=== PATIENT | male | born 1960 | race Caucasian/White ===

== ENCOUNTER 2016-10-06 10:03 | Observation (INO) ==
[2016-10-06 10:42] LABS: Basophils # 0.1 K/mcL (0.0-0.2); Basophils % 0.6 %; Eosinophils # 0.3 K/mcL (0.0-0.6); Eosinophils % 3.4 %; Hemoglobin 15.8 g/dL (12.9-16.9); Immature Granulocytes % 0.9 % (0-4); Lymphocytes % 25.9 %; Mean Corpuscular HGB Conc 35.1 g/dL (31.6-35.5); Mean Corpuscular Volume 85.6 fL (83.0-100.0); Mean Platelet Volume 9.4 fL (9.4-12.4); Monocytes # 0.5 K/mcL (0.0-1.3); Monocytes % 5.7 %; Platelet Count 188 K/mcL (140-400); Red Blood Count 5.26 M/mcL (4.19-5.50); Red Cell Distribution Width 11.9 % (11.5-14.5); Segmented Neutrophils % 63.5 %
[2016-10-06 10:46] LABS: Prothrombin Time 10.5 Seconds (9.4-12.1)
[2016-10-06 10:49] LABS: Activated Partial Thrombo Time 27.4 Seconds (26.0-36.0)
[2016-10-06 10:56] LABS: BUN/Creatinine Ratio 19 (6-26); Blood Urea Nitrogen 22 mg/dL (8-26); Calcium 8.9 mg/dL (8.6-10.8); Carbon Dioxide 23 mEq/L (19-29); Chloride 103 mEq/L (98-109); Glucose 265 mg/dL (70-99); Osmolality,Calculated 295 (280-300); Potassium 3.9 mEq/L (3.5-4.5); Sodium 136 mEq/L (136-145); eGFR For African Americans > 60 (> 60); eGFR For Non-African Americans > 60 (> 60)
[2016-10-06] MEDS ORDERED: *HR* Metoprolol 5 MG/5 ML VIAL IVP ONE (11:07)
[2016-10-06] MEDS ORDERED: Aspirin 81 MG TAB.CHEW PO STA (11:07)
--- NOTE | 2016-10-06 11:08 | Emergency Department Note ---
Disposition Clinical Impression: Stable angina Disposition: Admitted As Inpatient Condition: Good Referrals: NO,PCP [Non-Partnered Physician] - Forms: ED Satisfaction Letter Chest Pain HPI - General Chief Complaint: ED Chest Pain Stated Complaint: chest pain Time Seen by Provider: 10/06/16 10:08 Source: patient Mode of arrival: private vehicle Limitations: no limitations Vital Signs Reviewed: Yes Nursing Notes Reviewed: Yes - History of Present Illness HPI Narrative: 56-year-old male history of poorly controlled diabetes and hypertension who presents to the ER with a chief complaint of chest pain. Patient reports that he has had chest pain on and off for the last month but over the last 1-2 weeks it has been more constant. He reports worsening of his chest pain with any type of activity. He states that he gets short of breath and has to go inside and laid down. Patient reports during the last week he has had intermittent spells where he will also break out into sweats for no reason. Patient reports that he had a stress test roughly 4 years ago which was okay. He states that he has been checking his blood pressure at home because it is been poorly regulated. Recently started Coreg around 2 weeks ago. His blood pressure has remained in the 150s over 100s at home. No history of MN, stents, DVT or PE. No other complaints. Pt complaint: chest pain Onset (ago): week(s) Duration: constant Onset: during exertion Pain Location: substernal Severity: moderate Severity scale (1-10): 6 Quality: heaviness Pain Radiation: neck Improves with: rest Worsens with: exertion Associated symptoms: Reports: diaphoresis. Denies: nausea, vomiting, dyspnea Treatments prior to arrival chest pain: none - Related Data Allergies Allergy/AdvReac Type Severity Reaction Status Date / Time No Known Allergies Allergy Verified 10/06/16 11:59 All systems ED: reviewed and negative except as stated. Constitutional: Denies: fever Cardiovascular: Reports: chest pain, dyspnea on exertion Respiratory: Reports: dyspnea. Denies: cough, wheezes Gastrointestinal: Denies: abdominal pain, nausea, vomiting Musculoskeletal: Reports: other (Left jaw pain) Chest Pain PMH - Past Medical History Medical history: Reports: diabetes, hypertension Psychiatric history: Reports: no psych history - Social History Smoking Status: Never smoker Alcohol use: Reports: none Drug use: Reports: none Physical Exam - General Limitations: no limitations General appearance: alert, in no apparent distress - Head Head exam: atraumatic, normocephalic, normal inspection - Eye Eye exam: Present: normal appearance, PERRL, EOMI - ENT ENT exam: normal exam, normal oropharynx, mucous membranes moist - Expanded ENT Exam External ear exam: Present: normal external inspection Mouth exam: Present: normal external inspection Teeth exam: Present: normal inspection Throat exam: Present: normal inspection - Neck Neck exam: Present: normal inspection, full ROM, trachea midline - Chest Chest inspection: Present: normal inspection, symmetric chest wall rise. Absent : tenderness - Respiratory Respiratory exam: Present: normal lung sounds bilaterally - Cardiovascular Cardiovascular exam: Present: regular rate, normal rhythm, normal heart sounds - Abdominal Exam Abdominal exam: Present: soft, Non-Tender. Absent: tenderness, distention, rigidity - Extremities Exam Extremities exam: Present: normal inspection, full ROM - Expanded Upper Extremity Exam Shoulder exam: Present: normal inspection, full ROM Arm exam: Present: normal inspection, full ROM Elbow exam: Present: normal inspection, full ROM Forearm/Wrist exam: Present: normal inspection, full ROM Hand exam: Present: normal inspection, full ROM - Expanded Lower Extremity Exam Hip/Pelvis exam: Present: normal inspection, full ROM Upper leg exam: Present: normal inspection, full ROM Knee exam: Present: normal inspection, full ROM Lower leg exam: Present: normal inspection, full ROM Ankle exam: Present: normal inspection, full ROM Foot/toe exam: Present: normal inspection, full ROM - Back Exam Back exam: Present: normal inspection - Neurological Exam Neurological exam: Present: alert - Expanded Neurological Exam Patient oriented to: Present: person, place, time Coma Scale Eye Opening: Spontaneous Coma Scale Motor Response: Obeys Commands Coma Scale Verbal Response: Oriented Coma Scale Total: 15 - Psychiatric Psychiatric exam: Present: normal affect, normal mood - Skin Skin exam: Present: warm, dry, intact, normal color Course Course Narrative: Patient seen and examined. Vital signs reviewed. We will check an EKG, chest x -ray as well as basic labs. We will give him aspirin, nitroglycerin and Lopressor here. - Reevaluation(s) Reevaluation #1: Patient's pain at a 0 after 3 sublingual nitroglycerin. We will admit to the hospital for further management. Vital Signs Temperature 97.5 F L 10/06/16 10:06 Pulse Rate 87 10/06/16 10:06 Respiratory Rate 12 10/06/16 10:06 Blood Pressure 151/96 10/06/16 10:06 O2 Sat by Pulse Oximetry 100 10/06/16 10:06 Temperature 97.5 F L 10/06/16 10:06 Pulse Rate 83 10/06/16 11:13 Respiratory Rate 12 10/06/16 11:13 Blood Pressure 138/96 10/06/16 11:13 O2 Sat by Pulse Oximetry 100 10/06/16 11:13 Oxygen Delivery Oxygen Delivery Room Air Chest Pain - MDM Narrative Medical decision making narrative: 56-year-old male presents to the ER due to chest pain and dyspnea on exertion for the last week. EKG here sinus rhythm. Chest x-ray unremarkable. Troponin negative. Patient's pain subsided after 3 sublingual nitroglycerin. Patient admitted to the hospitalist service for further management. - Lab Data Lab results reviewed: Yes I reviewed the patient's lab results. Result diagrams: 10/06/16 10:30 10/06/16 10:30 Lab Results 10/06/16 10/06/16 10/06/16 Range/Units 10:30 10:30 10:30 WBC 7.8 (4.3-11.1) K/mcL RBC 5.26 (4.19-5.50) M/mcL Hgb 15.8 (12.9-16.9) g/dL Hct 45.0 (37.5-50.1) % MCV 85.6 (83.0-100.0) fL MCH 30.0 (28.0-33.3) pg MCHC 35.1 (31.6-35.5) g/dL RDW 11.9 (11.5-14.5) % Plt Count 188 (140-400) K/mcL MPV 9.4 (9.4-12.4) fL Immature Gran % 0.9 (0-4) % Seg Neutrophils % 63.5 % Lymphocytes % 25.9 % Monocytes % 5.7 % Eosinophils % 3.4 % Basophils % 0.6 % Neutrophils # 5.0 (1.6-8.9) K/mcL Lymphocytes # 2.0 (0.6-4.6) K/mcL Monocytes # 0.5 (0.0-1.3) K/mcL Eosinophils # 0.3 (0.0-0.6) K/mcL Basophils # 0.1 (0.0-0.2) K/mcL PT 10.5 (9.4-12.1) Seconds INR 1.0 APTT 27.4 (26.0-36.0) Seconds Sodium (136-145) mEq/L Potassium (3.5-4.5) mEq/L Chloride (98-109) mEq/L Carbon Dioxide (19-29) mEq/L BUN (8-26) mg/dL Creatinine (0.72-1.25) mg/dL Est GFR ( Amer) (> 60) Est GFR (Non-Af Amer) (> 60) BUN/Creatinine Ratio (6-26) Glucose (70-99) mg/dL Calculated Osmolality (280-300) Calcium (8.6-10.8) mg/dL Troponin I (0-0.03) ng/mL B-Natriuretic Peptide 19 (0-100) pg/mL 10/06/16 10/06/16 Range/Units 10:30 10:30 WBC (4.3-11.1) K/mcL RBC (4.19-5.50) M/mcL Hgb (12.9-16.9) g/dL Hct (37.5-50.1) % MCV (83.0-100.0) fL MCH (28.0-33.3) pg MCHC (31.6-35.5) g/dL RDW (11.5-14.5) % Plt Count (140-400) K/mcL MPV (9.4-12.4) fL Immature Gran % (0-4) % Seg Neutrophils % % Lymphocytes % % Monocytes % % Eosinophils % % Basophils % % Neutrophils # (1.6-8.9) K/mcL Lymphocytes # (0.6-4.6) K/mcL Monocytes # (0.0-1.3) K/mcL Eosinophils # (0.0-0.6) K/mcL Basophils # (0.0-0.2) K/mcL PT (9.4-12.1) Seconds INR APTT (26.0-36.0) Seconds Sodium 136 (136-145) mEq/L Potassium 3.9 (3.5-4.5) mEq/L Chloride 103 (98-109) mEq/L Carbon Dioxide 23 (19-29) mEq/L BUN 22 (8-26) mg/dL Creatinine 1.16 (0.72-1.25) mg/dL Est GFR ( Amer) > 60 (> 60) Est GFR (Non-Af Amer) > 60 (> 60) BUN/Creatinine Ratio 19 (6-26) Glucose 265 H (70-99) mg/dL Calculated Osmolality 295 (280-300) Calcium 8.9 (8.6-10.8) mg/dL Troponin I 0.00 (0-0.03) ng/mL B-Natriuretic Peptide (0-100) pg/mL - Radiology Data Radiology results reviewed: Yes I reviewed the patient's radiology results. Chest X-Ray 10/06/16 10:31 IMPRESSION: No acute cardiopulmonary findings. D/ / Sylvia Kaufman MD / Sylvia Kaufman MD Interpreting Provider: Sylvia Kaufman MD - EKG Data EKG attestation: Yes I reviewed and interpreted this EKG. EKG results narrative: EKG demonstrates normal sinus rhythm with a rate of 89 bpm. Normal axis. PA interval 159 QRS duration [address] elevations or depressions. No acute ischemic findings. Heart Score - Score History: Moderately Suspicious EKG: Normal Age: 45-65 Risk Factors: 1-2 risk factors Troponin: Less than normal limit HEART Score Total: 3 Attestation Statement - Attestation Attestation: Patient was seen with resident physician. I reviewed the history, physical, assessment and plan, and agree with the findings. I also personally evaluated this patient and had [id number] time with this patient. 56-year-old male who presents to the emergency department with a two-week history of worsening chest pressure. Patient states proximally 2 weeks ago he developed chest pressure with exertion. It was nonradiating and was associated with some diaphoresis and minimal shortness of breath. Patient states that since then has been getting progressively worse with more frequent intervals. He also notes that exertion makes it considerably worse. When asked how he treated it, he stated that he just sat down and relaxed and that sometimes ease the pressure. Currently in the ED his pressures rated at a 5 out of 10 with no diaphoresis or shortness of breath. On examination vital signs are unremarkable except for hypertension. ENT is normal. Heart regular rhythm and rate. Lungs clear. Abdomen soft and nontender. Extremities are unremarkable. Initial EKG showed no acute ischemic changes. Laboratory data does not reveal any acute abnormalities. Patient was given 3 sublingual nitroglycerin which resolved his symptoms. Patient was also hypertensive and was treated with Lopressor. He also received an aspirin. Pain was a 0 after the 3 nitros. Chest x-ray did not reveal any acute abnormalities. Certainly the patient's complaints are consistent with anginal symptoms possibly unstable at this point. We will have patient admitted to the hospital for further evaluation and treatment. Hospitalist was notified and admission was arranged. I agree with the resident physician assessment plan.
[2016-10-06] MEDS: Nitroglycerin 0.4 MG TAB.SUBL SL PRN ×3 (11:16→11:26)
[2016-10-06] MEDS ORDERED: Naloxone 0.4 MG/ML INJ IVP PRN (14:53)
[2016-10-06] MEDS ORDERED: Acetaminophen 325 MG TABLET PO PRN (14:53)
[2016-10-06] MEDS ORDERED: D5% in Water 1,000 ML IVC PRN (15:03)
[2016-10-06] MEDS ORDERED: *HR* Dextrose 50 % in Water (Syg) 50 ML SYRINGE IVP PRN (15:03)
[2016-10-06] MEDS ORDERED: Dextrose Gel 15 GM PO PRN ×2 (15:03)
--- NOTE | 2016-10-06 15:07 | Internal Med History&Physical ---
<Loulou Weiner - Last Filed: 10/06/16 22:32> Date of Encounter: 10/06/16 Time of Encounter: 15:07 Assessment and Plan (1) Stable angina Current visit: Yes Status: Acute 1 patient has been experiencing off and on chest pressure pain with fatigue diaphoresis or shortness of breath for approximately a month. Pain is worsened with exertion and relieved with rest and nitroglycerin. He does have a history of hypertension as well as diabetes. First set cardiac troponins are negative we will continue to cycle cardiac troponins 2. Upon assessment patient continues to have 2-3/10 chest pressure. Will start patient on Heparin Drip place Nitropaste 3 we will continue with beta srikanth and aspirin on Randall. We will check lipid profile in a.m. 4 continuous cardiac monitoring/EKG 5 make patient nothing by mouth after midnight for further cardiac testing in a.m. 6 consult cardiology 7 oxygen as needed (2) Hypertension Current visit: Yes Status: Acute 1 patient has uncontrolled hypertension we will continue with beta srikanth Randall nitroglycerin goal is to maintain systolic less than 140 Qualifiers: Hypertension type: essential hypertension Qualified Code(s): I10 - Essential (primary) hypertension (3) Diabetes Current visit: Yes Status: Acute 1 patient last A1c was 8.5 2 months ago per patient report. Accu-Cheks over 6 hours while nothing by mouth with sliding scale insulin goals we will resume before meals at bedtime Accu-Cheks with sliding scale insulin once patient is eating Qualifiers: Diabetes mellitus type: type 2 Diabetes mellitus complication status: without complication Diabetes mellitus mcc insulin use: with termination clerk use Qualified Code(s): E11.9 - Type 2 diabetes mellitus without complications ; Z79.4 - [facility] (current) use of insulin (4) DVT prophylaxis Current visit: Yes Status: Acute On heparin drip Internal Medicine - H&P: HPI Chief complaint: cp Admitted From: Emergency Dept Plans for Post Hospital Care: Home History of present illness: Mr. Doty is a 56 year old male past history of diabetes hypertension. Patient has been experiencing elevated blood pressure in his head blood pressure medication adjusted per primary care physician for the past month. According the patient he has been experiencing chest pain which she describes as a heaviness with midsternal radiates to his back it occurs off and on is aggravated by activity and is relieved with rest. Over the last 1-2 weeks chest pain has been worsening with activity and he has been getting short of breath with had to lie down and rest. He has also been experiencing episodes of diaphoresis for no reason and during episodes of his chest pressure He does report that he has had a stress test approximately 4 years ago which she states was okay. He has been taking his blood pressure is been poorly regulated . He was recently initiated on Coreg approximately 2 weeks ago. His blood pressure remained 150s over 100 to home. No past history of PA however his father did of an PA at age 49. He denies any fevers or chills strict exposures abdominal pain, diarrhea vomiting. He presented to the ER with above complaints. Upon presentation patient was experiencing 6/10 chest pain he was given 3 sublingual nitroglycerin and pain was relieved EKG sinus rhythm with no ST-T wave abnormalities. First set cardiac troponins are negative rest of lab work is unremarkable. He has been admitted for further workup and evaluation. Presently patient is experiencing some chest heaviness she describes as 2 out of 10. Will give patient nitroglycerin paste Heart sounds S1-S2 no clicks rubs or gallops murmurs. Lungs sounds are clear he is hemodynamically stable at this time. I reviewed this case with Dr. Valencia who agrees with plan. Past Med Surg Social Fam HX - Past Medical History Medical history: diabetes, hypertension Psychiatric history: no psych history - Social History Smoking Status: Never smoker Smokeless Tobacco Status: No Alcohol use: none Drug use: none - Family History Mother Living Status: Age at : 70 Cause of : Heart attack Hx Family Cardiac Disorders: Yes Hx Family Endocrine Disorder: Yes Hx Family Neurologic Disorders: Yes Father Living Status: Still Living Internal Medicine - H&P: Meds Amlodipine [Norvasc] 5 mg PO DAILY 10/06/16 [History] Aspirin 81 mg PO DAILY 10/06/16 [History] Carvedilol 3.125 mg PO BID 10/06/16 [History] Dapagliflozin Propanediol [Farxiga] 10 mg PO DAILY 10/06/16 [History] Hydrochlorothiazide 25 mg PO DAILY 10/06/16 [History] Lisinopril [Zestril] 20 mg PO BID 10/06/16 [History] Metformin HCl [Glucophage] 1,000 mg PO BID 10/06/16 [History] Omeprazole [PriLOSEC] 20 mg PO BID 10/06/16 [History] Saxagliptin HCl [Onglyza] 5 mg PO DAILY 10/06/16 [History] Allergies No Known Allergies Allergy (Verified 10/06/16 11:59) All Systems PM: A 10-system review of systems was performed and is negative for pertinent findings except as documented above in the HPI. - Constitutional Constitutional: excessive sweating, fatigue - Cardiovascular Cardiovascular ROS IM: chest pain, dyspnea - Respiratory Respiratory: dyspnea - Gastrointestinal Gastrointestinal: no abdominal pain, no diarrhea, no hematemesis, no hematochezia, no melena, no nausea, no vomiting - Musculoskeletal Musculoskeletal ROS IM: no numbness, no tingling - Neurological Neurological ROS: no confusion, no convulsions, no focal weakness, no numbness, no tingling, no tremor(s) - Hematologic/Lymphatic Hematologic/Lymphatic: no easy bruising - Constitutional Vitals: Temp Pulse Resp BP Pulse Ox 98 F 83 16 118/74 95 10/06/16 14:30 10/06/16 14:30 10/06/16 14:30 10/06/16 14:30 10/06/16 14:30 General appearance: Present: A&O X 3 - Head Head exam: Present: atraumatic, normocephalic - Neck Neck exam general surgery: Present: supple, trachea midline. Absent: lymphadenopathy - Respiratory Respiratory exam: Present: CTAB. Absent: accessory muscle use, rales, rhonchi, wheezes - Cardiovascular Cardiovascular exam: Present: RRR, +S1, +S2. Absent: diastolic murmur, gallop, rubs, systolic murmur - GI/Abdominal GI/Abdominal exam: Present: normal bowel sounds, soft, no peritoneal signs. Absent: distended, tenderness - Extremities Exam Extremities exam: Present: warm, radial pulses palpable and symetrical. Absent : calf tenderness, cyanotic, pedal edema - Neurological Exam Neurological exam: Present: CN II-XII intact, oriented X3, no focal deficits. Absent: pronater drift, facial droop, speech deficit - Skin Skin exam: Present: dry, intact Internal Med - H&P Results - Labs CBC & Chem 7: 10/06/16 19:31 10/06/16 10:30 - EKG Data EKG shows normal: sinus rhythm - Diagnostic Studies Other Images Additional comments: Chest X-Ray 10/06/16 10:31 IMPRESSION: No acute cardiopulmonary findings. D/ / Sylvia Kaufman MD / Sylvia Kaufman MD Interpreting Provider: Sylvia Kaufman MD <Calvin Valencia - Last Filed: 10/07/16 11:36> Internal Medicine - H&P: HPI History of present illness: Mr. Doty is a 56 year old male All Systems PM: A 10-system review of systems was performed and is negative for pertinent findings except as documented above in the HPI. - Constitutional Vitals: Temp Pulse Resp BP Pulse Ox 97.9 F 84 16 137/80 96 10/06/16 19:16 10/06/16 19:16 10/06/16 19:16 10/06/16 19:16 10/06/16 19:16 Internal Med - H&P Results - Labs CBC & Chem 7: 10/07/16 03:12 10/07/16 03:12 Labs: Short CBC 10/06/16 Range/Units 19:31 WBC 6.7 (4.3-11.1) K/mcL Hgb 14.5 (12.9-16.9) g/dL Hct 41.8 (37.5-50.1) % Plt Count 197 (140-400) K/mcL Cardiac Enzymes 10/06/16 Range/Units 16:15 Troponin I 0.00 (0-0.03) ng/mL - Attending Attestation I examined this patient and my medical decision-making was reviewed with the Advanced Practice Nurse. I agree with the documented findings, disposition and treatment plan as described except to the extent set forth below. The patient presented to the hospital with precordial chest pain, moderate to severe triggered by physical exertion and improved with rest. The pain was relieved with 3 tablets of nitroglycerin in the ER, currently reports a pressure sensation in the left side of the chest. On exam his in no acute distress awake alert oriented. Heart is regular S1 and S2 with no murmurs. Lungs are clear EKG shows normal sinus rhythm with T-wave inversions in lead III and aVF Plan: Patient has typical cardiac chest pain that occurs at rest consistent with unstable angina. Will monitor patient to telemetry. Trend troponin. We will treat the patient was aspirin, beta srikanth, start heparin drip. Consult cardiology. Obtain echocardiogram. Nothing by mouth after midnight for possible cardiac catheterization.
[2016-10-06] MEDS ORDERED: Insulin LISPRO 300 UNITS/3 ML VIAL SQ SCH ×2 (16:30→21:00)
[2016-10-06] MEDS ORDERED: *HR* Heparin 5,000 UNIT/ML VIAL IVP ONE (18:58)
[2016-10-06] MEDS ORDERED: *HR* Heparin 5,000 UNIT/ML VIAL IVP PRN ×2 (18:58)
[2016-10-06] MEDS ORDERED: Heparin 25,000 UNIT/500 ML D5W 25,000 UNIT/500 ML MLS IVC SCH (19:00)
[2016-10-06 19:56] LABS: Hematocrit 41.8 % (37.5-50.1); Hemoglobin 14.5 g/dL (12.9-16.9); Mean Corpuscular HGB Conc 34.7 g/dL (31.6-35.5); Mean Corpuscular Hemoglobin 29.7 pg (28.0-33.3); Mean Corpuscular Volume 85.7 fL (83.0-100.0); Mean Platelet Volume 9.5 fL (9.4-12.4); Platelet Count 197 K/mcL (140-400); Red Blood Count 4.88 M/mcL (4.19-5.50); Red Cell Distribution Width 11.9 % (11.5-14.5)
[2016-10-06 20:03] LABS: Prothrombin Time 10.9 Seconds (9.4-12.1)
[2016-10-06] MEDS: Lisinopril 20 MG TABLET PO SCH (20:03)
[2016-10-06] MEDS: Nitroglycerin 1 INCH/GM PACKET TP SCH (20:05)
[2016-10-06 20:06] LABS: Activated Partial Thrombo Time 27.3 Seconds (26.0-36.0)
[2016-10-06] MEDS: 0.9 % Sodium Chloride 1,000 ML IVC SCH (22:29)
[2016-10-07] MEDS: Insulin LISPRO 300 UNITS/3 ML VIAL SQ SCH ×4 (00:20→17:45)
[2016-10-07 03:24] LABS: Basophils % 0.6 %; Eosinophils # 0.3 K/mcL (0.0-0.6); Eosinophils % 4.3 %; Hematocrit 41.4 % (37.5-50.1); Hemoglobin 14.6 g/dL (12.9-16.9); Immature Granulocytes % 0.6 % (0-4); Lymphocytes # 2.6 K/mcL (0.6-4.6); Mean Corpuscular HGB Conc 35.3 g/dL (31.6-35.5); Mean Corpuscular Hemoglobin 30.7 pg (28.0-33.3); Mean Corpuscular Volume 87.2 fL (83.0-100.0); Mean Platelet Volume 9.5 fL (9.4-12.4); Monocytes # 0.5 K/mcL (0.0-1.3); Monocytes % 7.3 %; Neutrophils # 3.2 K/mcL (1.6-8.9); Platelet Count 182 K/mcL (140-400); Red Blood Count 4.75 M/mcL (4.19-5.50); Red Cell Distribution Width 11.9 % (11.5-14.5); Segmented Neutrophils % 48.2 %
[2016-10-07 03:35] LABS: BUN/Creatinine Ratio 19 (6-26); Blood Urea Nitrogen 21 mg/dL (8-26); Calcium 8.6 mg/dL (8.6-10.8); Carbon Dioxide 24 mEq/L (19-29); Chloride 106 mEq/L (98-109); Chol/HDL Ratio 5.7 (0-4.9); Cholesterol 149 mg/dL (< 200); Glucose 213 mg/dL (70-99); HDL Cholesterol 26 mg/dL (40-59); Osmolality,Calculated 293 (280-300); Potassium 3.8 mEq/L (3.5-4.5); Sodium 137 mEq/L (136-145); eGFR For African Americans > 60 (> 60); eGFR For Non-African Americans > 60 (> 60)
[2016-10-07 03:40] LABS: Triglycerides 492 mg/dL (< 150)
[2016-10-07] MEDS ORDERED: Nitroglycerin 1 INCH/GM PACKET TP SCH (06:00)
[2016-10-07] MEDS: Nitroglycerin 1 INCH/GM PACKET TP SCH ×2 (06:15→11:26)
--- NOTE | 2016-10-07 08:37 | ECHO - Doppler Report ---
Echocardiogram Name: Adilson Doty Date of Study: 10/06/2016 Date: 1960 Ht: 70.0 in Medical Record#: [id number] Age: 56 Wt: 223.0 lb Gender: Male BSA: 2.19 Order #: [id number] Location: [facility] Room #: 3B Reading Physician: Rogelio Marquez MD, [facility] [place] Sorter: Holly Ni RDCS Ordering Physician: Loulou Weiner CNP Primary Physician: Brandon Gallagher MD Indications: Chest pain Impressions: Normal LV systolic function, LVEF 55-60%. Normal left ventricular diastolic function. Normal right ventricular size and function. No significant valvular dysfunction. Left Ventricular Wall Motion: Rest Echo Findings All wall segments showed normal motion. Findings: Study Quality * Suboptimal echo windows. ECG Findings * Normal sinus rhythm. Left Ventricle * Normal LV systolic function, LVEF 55-60%. * Normal LV chamber size and wall thickness. * Normal left ventricular diastolic function. Right Ventricle * Normal right ventricular size and function. Left Atrium * Normal left atrial size. Right Atrium * Normal right atrial size. Aorta * Normally sized aortic root. Pericardium * There is no pericardial effusion present. IVC * The IVC is not dilated. Aortic Valve * Aortic valve not well visualized. * No aortic stenosis. * No aortic regurgitation. Mitral Valve * Mild mitral annular calcification * No mitral stenosis. * Trace mitral regurgitation. Tricuspid Valve * Tricuspid valve not well visualized. * No tricuspid stenosis. * Trace tricuspid regurgitation. * Unable to estimate RVSP due to lack of TR jet. Pulmonic Valve * Pulmonic valve not well visualized. * No pulmonic stenosis. * No pulmonic regurgitation. History Hypertension Diabetes Family History of CAD Measurements: BP: 118/ 74 2D Normal Values RVIDd: 3.00 cm IVSd: .90 cm 0.6 - 1.0 cm LVIDd: 4.60 cm 3.7 - 5.6 cm LVPWd: .80 cm 0.6 - 1.1 cm LVIDs: 2.90 cm 1.5 - 3.6 cm AO: 3.10 cm < 4.0 cm LA volume: 30 Mitral Valve Peak E:.82 m/sec Peak A:.72 m/sec E/A Ratio:1.1 Updated by Rogelio Marquez MD, [facility] on 10/07/2016 8:32:54 AM electronically signed on 10/07/2016 8:33:22 AM with status of Final Wall Motion Jose: 1=Normal, 2=Hypokinesis, 3=Akinesis, 4=Dyskinesis, 5=Aneurysmal, 6=Hyperkinetic, X=Not Visualized (Blank)=Missing
[2016-10-07] MEDS: Aspirin 81 MG TAB.CHEW PO SCH (11:26)
[2016-10-07] MEDS: Lisinopril 20 MG TABLET PO SCH ×2 (11:26→19:59)
[2016-10-07] MEDS: amLODIPine 5 MG TABLET PO SCH (11:26)
[2016-10-07] MEDS: hydroCHLOROthiazide 25 MG TABLET PO SCH (11:26)
[2016-10-07] MEDS: 0.9 % Sodium Chloride 1,000 ML IVC SCH (11:30)
--- NOTE | 2016-10-07 11:51 | Discharge Summary ---
Date of Encounter: 10/07/16 Time of Encounter: 10:15 - Discharge Diagnosis (1) Stable angina Priority: Primary Status: Resolved Comments: Pt denies chest pain now. He does not want to stay for stress test, which will have to be done tomorrow since he has had nitroglycerine paste on until about 10a.m. Chest pain was resolved with nitroglycerin. Pt states that he does not have time to wait for stress tomorrow. Pt did have echo which showed LVEF 45-60% . Left ventricular diastolic function, normal right ventricular size and function, no significant valvular dysfunction. Patient had a chest x-ray yesterday morning most likely in the emergency department. No acute cardiopulmonary findings. His troponins were negative 3. After lengthy discussion patient has decided to stay for stress test in the morning. I discussed patient's triglyceride level with him, and will repeated again in the morning to ensure that he is fasting. (2) Hypertension Status: Acute Qualifiers: Hypertension type: essential hypertension Qualified Code(s): I10 - Essential (primary) hypertension (3) Diabetes Status: Acute Qualifiers: Diabetes mellitus type: type 2 Diabetes mellitus complication status: without complication Diabetes mellitus intermediate insulin use: with intermediate use Qualified Code(s): E11.9 - Type 2 diabetes mellitus without complications ; Z79.4 - retirement (current) use of insulin (4) DVT prophylaxis Status: Acute - Discharge Medications Home Medications: Amlodipine [Norvasc] 5 mg PO DAILY 10/06/16 [History] Aspirin 81 mg PO DAILY 10/06/16 [History] Carvedilol 3.125 mg PO BID 10/06/16 [History] Dapagliflozin Propanediol [Farxiga] 10 mg PO DAILY 10/06/16 [History] Hydrochlorothiazide 25 mg PO DAILY 10/06/16 [History] Lisinopril [Zestril] 20 mg PO BID 10/06/16 [History] Metformin HCl [Glucophage] 1,000 mg PO BID 10/06/16 [History] Omeprazole [PriLOSEC] 20 mg PO BID 10/06/16 [History] Saxagliptin HCl [Onglyza] 5 mg PO DAILY 10/06/16 [History] Allergies/Adverse Reactions: Allergies No Known Allergies Allergy (Verified 10/06/16 11:59) Procedures/tests Complete & Pending: Procedures Performed prior 72 hours Category Date Time Status NM edward perf SPECT multi [NM] Routine Exams 10/08/16 07:00 Ordered ECG 12 lead ECG [ECG] AM 0600 Y 10/07/16 06:00 Ordered EV echocardiogram Routine Y 10/06/16 15:01 Completed SP pharm nuclear stress Routine Y 10/08/16 07:00 Ordered Date of admission: 10/06/16 13:00 Primary care physician: Brandon Gallagher Consults: 10/06/16 19:20 Consult to Cardiology [CONS] Routine Comment: Consulting Provider: Cardiology Ashley Reason for Consult: cp Time Notified: 19:21 Call Completed: No Discharging clinician: Mary Ann Link Anticipated date of discharge: 10/07/16 - Patient Status Condition: Good - Discharge Instructions Follow Up With: Brandon Gallagher, [Primary Care Provider] - Hospital course: Mr. Doty is a 56 year old male - Time Spent with Patient Total time spent providing and/or coordinating discharge services: - Constitutional Vitals: Temp Pulse Resp BP Pulse Ox 98.1 F 83 16 128/79 95 10/07/16 11:19 10/07/16 11:19 10/07/16 11:19 10/07/16 11:19 10/07/16 11:19 General appearance: Present: A&O X 3
--- NOTE | 2016-10-07 12:49 | Internal Med Progress Note ---
Date of Encounter: 10/07/16 Time of Encounter: 10:15 - Assessment and plan (1) Stable angina Current Visit: Yes Status: Resolved Assessment and plan: Patient denies chest pain today. Patient was under the impression that he was going to have a cardiac catheter this morning. His stress test was canceled last night. Patient states that he will not tell people if he has chest pain due to not wanting nitroglycerin so he can have stress in the morning. We did discuss his multiple risk factors, including diabetes, triglycerides 492, and hypertension. Patient denies nausea, vomiting, or diarrhea. He also denies shortness of breath. He does relate history of claudication with exertion. Patient had echo that shows LVEF of 55-60%, normal LV diastolic function, normal RV size and function, no significant valvular dysfunction. Serial troponins were negative. Stress test in the morning Continue telemetry Will redraw triglycerides to ensure they are fasting level Monitor labs Vital signs (2) Hypertension Current Visit: Yes Status: Acute Assessment and plan: Blood pressure has returned to baseline. Continue home medications. Continue telemetry. Monitor vital signs. Qualifiers: Hypertension type: essential hypertension Qualified Code(s): I10 - Essential (primary) hypertension (3) Diabetes Current Visit: Yes Status: Acute Assessment and plan: Pt has had hyperglycemia since arrival. Continue sliding scale insulin He checks before meals at bedtime A1c in the morning fasting. 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 We will start subcutaneous heparin prophylaxis. - Time Spent With Patient 25 - 35 minutes - Subjective Interval history: Patient seen and is alert and oriented sitting up in bed, at bedside. Patient denies chest pain or pressure today. States that it was relieved after nitroglycerin was applied. He was to have a stress test this morning, however it was canceled due to him having Nitropaste, it will be done tomorrow. He denies nausea, vomiting, or diarrhea. He denies shortness of breath, as well. Patient initially said that he was going to leave AMA due to his frustration over having to wait for stress test, after lengthy discussion, patient states that he is going to stay. - Constitutional Vitals: Temp Pulse Resp BP Pulse Ox 98.1 F 83 16 128/79 95 10/07/16 11:19 10/07/16 11:19 10/07/16 11:19 10/07/16 11:19 10/07/16 11:19 General appearance: Present: cooperative, A&O X 3, pleasant, answers questions appropriately - Head Head exam: Present: normal inspection - Eye Eye exam: Present: normal appearance, conjuntiva pink - ENT ENT exam: Present: mucous membranes moist, normal exam - Neck Neck exam general surgery: Present: normal inspection. Absent: lymphadenopathy , tenderness - Respiratory Respiratory exam: Present: CTAB. Absent: respiratory distress, rhonchi, stridor , wheezes - Cardiovascular Cardiovascular exam: Present: RRR, +S1, +S2. Absent: tachycardia - Expanded Cardiovascular Exam Peripheral pulses: 2+: Dorsalis Pedis (L) PM, Dorsalis Pedis (R) PM - GI/Abdominal GI/Abdominal exam: Present: soft. Absent: distended, hepatomegaly, tenderness - Extremities Exam Extremities exam: Present: warm, radial pulses palpable and symetrical. Absent : calf tenderness, cyanotic, pedal edema, tenderness - Back Exam Back exam: Present: normal inspection. Absent: tenderness - Neurological Exam Neurological exam: Present: alert, oriented X3, strengths equal and symetr throughout. Absent: no focal deficits, facial droop, speech deficit Internal Medicine: Result - Labs CBC & Chem 7: 10/07/16 03:12 10/07/16 03:12 Labs: Short CBC 10/06/16 10/07/16 Range/Units 19:31 03:12 WBC 6.7 6.7 (4.3-11.1) K/mcL Hgb 14.5 14.6 (12.9-16.9) g/dL Hct 41.8 41.4 (37.5-50.1) % Plt Count 197 182 (140-400) K/mcL Neutrophils # 3.2 (1.6-8.9) K/mcL BMP 10/07/16 03:12 Sodium 137 Potassium 3.8 Chloride 106 Carbon Dioxide 24 BUN 21 Creatinine 1.12 Glucose 213 H Calcium 8.6 Cardiac Enzymes 10/06/16 10/06/16 Range/Units 16:15 22:21 Troponin I 0.00 0.01 (0-0.03) ng/mL - ABG Interpretation ABG results: PT/INR, D-dimer PT 10.9 Seconds (9.4-12.1) 10/06/16 19:31 Consult Discharge Plan - Plan Referrals: Brandon Gallagher, DO [Primary Care Provider] -
[2016-10-07] MEDS: *HR* Heparin 5,000 UNIT/ML VIAL SQ SCH (17:44)
[2016-10-08] MEDS: Insulin LISPRO 300 UNITS/3 ML VIAL SQ SCH ×3 (00:56→12:23)
[2016-10-08 04:50] LABS: Basophils % 0.7 %; Eosinophils # 0.3 K/mcL (0.0-0.6); Eosinophils % 4.8 %; Hemoglobin 14.7 g/dL (12.9-16.9); Immature Granulocytes % 0.7 % (0-4); Lymphocytes % 33.8 %; Mean Corpuscular HGB Conc 35.9 g/dL (31.6-35.5); Mean Corpuscular Hemoglobin 30.9 pg (28.0-33.3); Mean Corpuscular Volume 86.3 fL (83.0-100.0); Mean Platelet Volume 9.8 fL (9.4-12.4); Monocytes # 0.5 K/mcL (0.0-1.3); Neutrophils # 3.1 K/mcL (1.6-8.9); Platelet Count 184 K/mcL (140-400); Red Blood Count 4.75 M/mcL (4.19-5.50); Red Cell Distribution Width 11.9 % (11.5-14.5)
[2016-10-08 05:08] LABS: BUN/Creatinine Ratio 17 (6-26); Blood Urea Nitrogen 19 mg/dL (8-26); Calcium 8.4 mg/dL (8.6-10.8); Carbon Dioxide 21 mEq/L (19-29); Chloride 106 mEq/L (98-109); Glucose 275 mg/dL (70-99); Osmolality,Calculated 294 (280-300); Potassium 3.7 mEq/L (3.5-4.5); Triglycerides 965 mg/dL (< 150); eGFR For African Americans > 60 (> 60); eGFR For Non-African Americans > 60 (> 60)
[2016-10-08 05:14] LABS: Sodium 136 mEq/L (136-145)
[2016-10-08 05:47] LABS: Hemoglobin A1C 7.8 %
[2016-10-08] MEDS ORDERED: Regadenoson 0.4 MG/5 ML SYRINGE IVP ONE (06:08)
[2016-10-08] MEDS: Nitroglycerin 1 INCH/GM PACKET TP SCH ×2 (06:28→12:24)
[2016-10-08] MEDS: *HR* Heparin 5,000 UNIT/ML VIAL SQ SCH (06:28)
--- NOTE | 2016-10-08 07:24 | Electrocardiograph Report ---
[place] [id number] Test Date: 2016-10-06 Pat Name: Adilson Doty Department: 103 Room: 3B Gender: M Insurance Counselor: JOSE ENRIQUE : 1960 Requested By: Lucien Donaldson Order Number: [id number] Reading MD: Doc Albarran MD Measurements Intervals [place] Rate: 89 P: 64 SC: 159 QRS: 54 QRSD: 98 T: 13 QT: 335 QTc: 382 Interpretive Statements SINUS RHYTHM Electronically Signed On 10-08-2016 7:22:35 EDT by Doc Albarran MD
[2016-10-08] MEDS: hydroCHLOROthiazide 25 MG TABLET PO SCH (09:26)
[2016-10-08] MEDS: Aspirin 81 MG TAB.CHEW PO SCH (09:27)
[2016-10-08] MEDS: amLODIPine 5 MG TABLET PO SCH (09:28)
[2016-10-08] MEDS: Lisinopril 20 MG TABLET PO SCH (09:28)
--- NOTE | 2016-10-08 10:09 | Nuclear Medicine Stress Report ---
Low Level Regadenoson Name: Adilson Doty Date of Study: 10/08/2016 Date: 1960 Ht: 70.0 in Medical Record#: [id number] Age: 56 Wt: 220.0 lb Gender: Male Order #: [id number] Location: [facility] IP Room: [facility] Supervising Provider: Jaky Hough CNP Reading Physician: Rogelio Marquez MD, [facility] Ordering Physician: Mary Ann Link CNP Primary Care Physician: Brandon Gallagher MD Stress Technologist: Fariba Cardoso, ASSISTANT ART DIRECTOR, CCT, CPFT Truck Greaser: Zoë Blackmon Indications: Chest Pressure Impression: No significant ECG changes with regadenoson and low level exercise. Gated LVEF = 67%. Perfusion imaging was negative for ischemia or infarct. History: Hypertension Diabetes Stress Test Summary: Stress Test Type: Low level pharmacologic Regadenoson 0.4mg/5ml given IV Baseline Information: Initial Heart Rate: 83 Blood Pressure: 130/96 Stress Information: Stress Time: 4 min 00 sec Test Terminated Due to (primary): As per protocol Maximum Blood Pressure: 186/92 Maximum Heart Rate: 137 Percent Maximum Heart Rate Achieved: 83 Double Product: [id number] METS Reached: 2.1 Symptoms: No chest symptoms Nuclear Summary: SPECT myocardial perfusion imaging using Tc99m Sestamibi given intravenously was performed at rest and following cardiac stress testing. The resting images were obtained following initial dose of 10.4 mCi. Following stress an additional dose of 35 mCi was given at peak exercise or 30 seconds post regadenoson infusion. Findings: Stress Note * Resting ECG demonstrated normal sinus rhythm. * No baseline arrhythmias were noted. * Patient had no chest pain during stress. * No arrhythmias were noted during stress. * No significant ECG changes with regadenoson and low level exercise. Hemodynamic responses * Normal hemodynamic responses to low level exercise plus pharmacologic stress. Study Quality * Study quality is average. Gated EF % * Gated LVEF = 67%. Left Ventricle * The left ventricle is not dilated. * Normal Segmental Perfusion in rest. * Normal segmental perfusion in stress. TID * No evidence of transient ischemic dilatation. Updated by Rogelio Marquez MD, [facility] on 10/08/2016 10:04:48 AM electronically signed on 10/08/2016 10:05:10 AM with status of Final
[2016-10-08 10:58] VITALS: BP 162/79
--- NOTE | 2016-10-08 12:27 | Discharge Summary ---
Date of Encounter: 10/08/16 Time of Encounter: 10:20 - Discharge Diagnosis (1) Stable angina Priority: Primary Status: Resolved Comments: Again today pt denies chest pain, sob, nausea, diaphoresis. Patient also denies chest pain during his stress test today. Patient states that he had no problems during his stress test there were no changes to the ECG with the medication or exercise, gated LVEF 67% and stress was negative for infarct or ischemia. He had an echo done on the which showed LVEF 55-60% no diastolic dysfunction. His chest x-ray was negative for any cardiopulmonary disease. Yesterday patient related a history of claudication with exercise. He denies this today with the stress test. (2) Hypertension Priority: Secondary Status: Chronic Comments: Patient reports a history of hypertension, with a systolic pressure always greater than 90. 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 Other than one reading patient has been normotensive here. I did discuss at length with the patient lifestyle modification, and how to properly take her blood pressure. We will continue his home medications and he is aware that he needs to follow-up with his primary care physician. Qualifiers: Hypertension type: essential hypertension Qualified Code(s): I10 - Essential (primary) hypertension (3) Diabetes Priority: Secondary Status: Chronic Comments: Patient's A1c was 7.8%. He states this is actually lower than what it was a year ago. His glucose has been consistently high since admission, today was 275. Patient and I had a lengthy discussion about controlling his blood sugar. I have referred him to the clearance center manager and he seems interested in meeting with her learning about his diet. We will continue his home medications. Qualifiers: Diabetes mellitus type: type 2 Diabetes mellitus complication status: without complication Diabetes mellitus halfway insulin use: with long term care administrator use Qualified Code(s): E11.9 - Type 2 diabetes mellitus without complications ; Z79.4 - watermelon harvesting supervisor (current) use of insulin (4) DVT prophylaxis Priority: Secondary Status: Acute Comments: Subcutaneous heparin. - Discharge Medications Home Medications: Amlodipine [Norvasc] 5 mg PO DAILY 10/06/16 [History] Aspirin 81 mg PO DAILY 10/06/16 [History] Carvedilol 3.125 mg PO BID 10/06/16 [History] Dapagliflozin Propanediol [Farxiga] 10 mg PO DAILY 10/06/16 [History] Hydrochlorothiazide 25 mg PO DAILY 10/06/16 [History] Lisinopril [Zestril] 20 mg PO BID 10/06/16 [History] Metformin HCl [Glucophage] 1,000 mg PO BID 10/06/16 [History] Omeprazole [PriLOSEC] 20 mg PO BID 10/06/16 [History] Saxagliptin HCl [Onglyza] 5 mg PO DAILY 10/06/16 [History] Allergies/Adverse Reactions: Allergies No Known Allergies Allergy (Verified 10/06/16 11:59) Procedures/tests Complete & Pending: Procedures Performed prior 72 hours Category Date Time Status NM edward perf SPECT multi [NM] Routine Exams 10/08/16 07:00 Taken ECG 12 lead ECG [ECG] AM 0600 Y 10/07/16 06:00 Ordered EV echocardiogram Routine Y 10/06/16 15:01 Completed SP pharm nuclear stress Routine Y 10/08/16 08:20 Completed Date of admission: 10/06/16 13:00 Primary care physician: Brandon Gallagher Consults: 10/06/16 19:20 Consult to Cardiology [CONS] Routine Comment: Consulting Provider: Cardiology Ashley Reason for Consult: cp Time Notified: 19:21 Call Completed: No 10/08/16 10:26 Consult to Operating Room Aide [CONS] Routine Comment: May see outpatient. Needs education on diet. Discharging clinician: Mary Ann Link Anticipated date of discharge: 10/08/16 - Patient Status Disposition: Home, Self-Care Functional capacity at discharge: independent ambulation Overall status at discharge: patient is back to baseline - Discharge Instructions Follow Up With: Brandon Gallagher DO [Primary Care Provider] - Additional Instructions: Please follow up with your family doctor regarding your diabetes, your blood pressure, and your triglycerides. I have referred you to the Operating Room Aide, they will call you for an appointment. Please resume your home medications. Please return to the ER if you have any concerns, chest pain, shortness of breath, or for any other concerning symptoms. - Diet and Activity Activity: resume usual activities as tolerated Diet: advance to your usual diet Hospital course: Mr. Doty is a 56 year old male with history of diabetes and hypertension presented to the emergency department 2 days ago reporting intermittent chest pressure, fatigue, diaphoresis, and shortness of breath for about a month. The pressure was worse with with exertion and relieved with rest and nitroglycerin. He was initially placed on a heparin drip and given Nitropaste, and was scheduled for stress test and echocardiogram. He was unable to have his stress test due to the Nitropaste. Patient states until today for the stress test. The stress and echo were both negative. LVEF 60-65% with no diastolic dysfunction and stress test was negative for ischemia or infarct. Chest x-ray was negative for any cardiopulmonary process. He is denying chest pain or pressure since yesterday. Patient and I had a lengthy discussion today about lifestyle modifications in regards to his diabetes and hypertension. He says his blood pressure is chronically elevated at home with a diastolic over 90 mmHg. His triglycerides are also elevated at 492. His A1c is 7.8%, which he states is less than it was a year ago, and his blood sugars have been elevated since arrival. He states that he will follow-up with his primary care physician for all of these issues and I have referred him to clearance center manager. He is stable for discharge. - Time Spent with Patient Total time spent providing and/or coordinating discharge services: Less than 30 minutes - Constitutional Vitals: Temp Pulse Resp BP Pulse Ox 98.0 F 85 16 162/79 96 10/08/16 10:53 10/08/16 10:53 10/08/16 10:53 10/08/16 10:53 10/08/16 10:53 General appearance: Present: cooperative, A&O X 3, pleasant, answers questions appropriately - Head Head exam: Present: normal inspection - Eye Eye exam: Present: normal appearance, conjuntiva pink - ENT ENT exam: Present: mucous membranes moist, normal exam - Neck Neck exam general surgery: Present: normal inspection. Absent: lymphadenopathy , tenderness - Respiratory Respiratory exam: Present: CTAB. Absent: accessory muscle use, chest wall tenderness, decreased breath sounds, rales, respiratory distress, rhonchi, stridor, wheezes, tachypnea - Cardiovascular Cardiovascular exam: Present: RRR, +S1, +S2. Absent: diastolic murmur, systolic murmur - Expanded Cardiovascular Exam Peripheral pulses: 2+: Dorsalis Pedis (L) PM, Dorsalis Pedis (R) PM - GI/Abdominal GI/Abdominal exam: Present: normal bowel sounds, soft. Absent: hepatomegaly, tenderness - Extremities Exam Extremities exam: Present: normal capillary refill, normal inspection, warm, radial pulses palpable and symetrical. Absent: pedal edema, tenderness - Neurological Exam Neurological exam: Present: alert, oriented X3, strengths equal and symetr throughout. Absent: no focal deficits, pronater drift, facial droop, speech deficit
== END 2016-10-08 13:14 | disposition home or self-care (01) ==
LOC: EMEROO 10:03 → 3BNU 10:03
PROVIDERS: ADMIT Nurse Practitioner Acute Care; ATTEND Registered Nurse